=== PATIENT | female | born 1990 ===

== ENCOUNTER 2018-01-01 23:12 | Emergency (ER) | payer OTHER ==
[2018-01-02 00:01] LABS: ABS Basophils 0.1 10^3/ul (0-0.2); ABS Eosinophils 0.1 10^3/ul (0-0.6); ABS Lymphocytes 3.9 10^3/ul (1.0-4.8); ABS Monocytes 0.6 10^3/ul (0-0.8); ABS Neutrophils 7.9 10^3/ul (1.5-7.7); ABS Nucleated RBC 0 10^3/ul; Hematocrit 41 % (35-47); Hemoglobin 13.8 g/dl (12.0-16.0); Lymphocyte % 30.5 % (25-47); Mean Corpuscular HGB Conc 34 g/dl (31-36); Mean Corpuscular Hemoglobin 28 pg (27-31); Mean Corpuscular Volume 84 fL (80-97); Mean Platelet Volume 8.1 um3 (7.4-10.4); Nucleated Red Blood Cells % 0; Platelet Count 270 10^3/ul (150-450); Red Blood Count 4.88 10^6/ul (4.00-5.40); Red Cell Distribution Width 14 % (10.5-15); White Blood Count 12.6 10^3/ul (3.5-10.8)
[2018-01-02 00:17] LABS: EGFR Non-African American 83.6 (>60)
[2018-01-02] MEDS ORDERED: Famotidine TAB* 20 MG PO ONE (00:52)
[2018-01-02] MEDS ORDERED: diPHENhydraMINE IV* 50 MG/ML 1 ml VIAL (BENADRYL) IV ONE (00:52)
[2018-01-02] MEDS ORDERED: NS 0.9% 1000 ML* 1,000 ML IV ONE (00:52)
[2018-01-02] MEDS ORDERED: Ketorolac INJ* 30 MG/ML 1 ML VIAL IV PUSH ONE (00:52)
[2018-01-02] MEDS ORDERED: Metoclopramide IV* 5 MG/ML 2 ML VIAL IV ONE (00:52)
[2018-01-02] MEDS ORDERED: Iohexol 300* (CONTRAST) 10 ML SDV IV ONE (01:02)
[2018-01-02] MEDS ORDERED: oxyCODONE/Acetamin 5/325 MG* TAB PO ONE (02:50)
[2018-01-02] MEDS ORDERED: Sulfamethox/Trimethoprim DS 800/160* TAB PO ONE (02:50)
[2018-01-02] MEDS ORDERED: traMADol TAB* 50 MG PO ONE (02:53)
[2018-01-02 03:14] VITALS: BP 119/84
--- NOTE | 2018-01-02 05:06 | ED ---
Tasneem Phillip Jade, scribed for Kyle Nugent MD on 01/02/18 at 0124 . Headache - HPI Summary HPI Summary: Pt is a 27 y/o female who presents to the ED c/o headache since 20:00. She states the headache began suddenly, is rated 5/10 in severity, is sharp in quality, and is located over the left side of her forehead. Pt states she also has a bump on the back of her neck underneath her skin that feels as if its triggering the headache. Pt tried to sleep, but when she fell down she had cramping stomach pain and vomited 3 times. Pt has N/V/D, but denies any fever. She also states shes had a cough for one month that wont resolve, and had left ear pain. Pt denies recent travel outside the country, but has been on multiple planes recently. She has been stressed recently, because her dad has been in the ICU. PMHx migraines. FHx Hodgkins lymphoma. - History Of Current Complaint Chief Complaint: EDAbdPain Stated Complaint: ABD PAIN Time Seen by Provider: 01/02/18 00:41 Hx Obtained From: Patient Onset/Duration: Sudden Onset, Started hours ago - 20:00, Still Present Currently Pain Is: Moderate - 5/10 Timing: Constant Character: Sharp Location of Headache: Occipital - Left Aggravating Factor: Bright Lights Allevating Factors: Nothing Associated Signs And Symptoms: Nausea, Vomiting - Allergies/Home Medications Allergies/Adverse Reactions: Allergies Allergy/AdvReac Type Severity Reaction Status Date / Time acetaminophen [From Vicodin] Allergy Rash Verified 01/01/18 23:21 clindamycin Allergy Rash Verified 01/01/18 23:21 hydrocodone [From Vicodin] Allergy Rash Verified 01/01/18 23:21 PMH/Surg Hx/FS Hx/Imm Hx Endocrine/Hematology History: Denies: Hx Diabetes Cardiovascular History: Denies: Hx Hypertension History: Denies: Hx Renal Disease Neurological History: Reports: Hx Migraine Infectious Disease History: No Infectious Disease History: Denies: Traveled Outside the [place] in Last 30 Days - Family History Known Family History: Positive: Other - Hodgkin's lymphoma - Social History Alcohol Use: Rare Substance Use Type: Reports: None Smoking Status (MU): Never Smoked Tobacco Review of Systems Negative: Fever Positive: Cough Positive: Abdominal Pain, Vomiting, Diarrhea, Nausea Positive: Headache All Other Systems Reviewed And Are Negative: Yes Physical Exam - Summary Physical Exam Summary: Appearance: Well appearing, no pain distress Skin: warm, dry, reflects adequate perfusion. Acanthosis on posterior neck fold. Head/face: Firm mobile mass on posterior neck just left of midline. Occipital headache. Temporal arteries non-tender. Eyes: EOMI, ROXANA ENT: normal. Throat clear. Neck: supple, non-tender Respiratory: CTA, breath sounds present Cardiovascular: RRR, pulses symmetrical. No LE edema. Abdomen: non-tender, soft Bowel Sounds: present Musculoskeletal: normal, strength/ROM intact Neuro: normal, sensory motor intact, A&Ox3 Triage Information Reviewed: Yes Vital Signs On Initial Exam: Initial Vitals Temp Pulse Resp BP Pulse Ox 96.9 F 103 20 105/71 98 01/01/18 23:19 01/01/18 23:19 01/01/18 23:19 01/01/18 23:19 01/01/18 23:19 Vital Signs Reviewed: Yes Procedures - Incision and Drainage Posterior Neck Site: Posterior neck just left of midline Anesthesia: Lidocaine - 3 cc Instrument(s): Scalpel - 11 blade Packing: Gauze - .25 inch Iodoform. Took culture. Small amount of purulent puss released. Identified with US. Diagnostics - Vital Signs Vital Signs Temp Pulse Resp BP Pulse Ox 01/01/18 23:19 96.9 F 103 20 105/71 98 - Laboratory Lab Results: Lab Results 01/01/18 01/01/18 01/01/18 Range/Units 23:48 23:48 23:48 WBC 12.6 H (3.5-10.8) 10^3/ul RBC 4.88 (4.00-5.40) 10^6/ul Hgb 13.8 (12.0-16.0) g/dl Hct 41 (35-47) % MCV 84 (80-97) fL MCH 28 (27-31) pg MCHC 34 (31-36) g/dl RDW 14 (10.5-15) % Plt Count 270 (150-450) 10^3/ul MPV 8.1 (7.4-10.4) um3 Neut % (Auto) 62.7 (38-83) % Lymph % (Auto) 30.5 (25-47) % Mcdonald % (Auto) 5.1 (0-7) % Eos % (Auto) 1.0 (0-6) % Baso % (Auto) 0.7 (0-2) % Absolute Neuts (auto) 7.9 H (1.5-7.7) 10^3/ul Absolute Lymphs (auto) 3.9 (1.0-4.8) 10^3/ul Absolute Monos (auto) 0.6 (0-0.8) 10^3/ul Absolute Eos (auto) 0.1 (0-0.6) 10^3/ul Absolute Basos (auto) 0.1 (0-0.2) 10^3/ul Absolute Nucleated RBC 0 10^3/ul Nucleated RBC % 0 Sodium 143 (135-145) mmol/L Potassium 3.6 (3.5-5.0) mmol/L Chloride 105 (101-111) mmol/L Carbon Dioxide 25 (22-32) mmol/L Anion Gap 13 H (2-11) mmol/L BUN 13 (6-24) mg/dL Creatinine 0.81 (0.51-0.95) mg/dL Est GFR ( Amer) 101.2 (>60) Est GFR (Non-Af Amer) 83.6 (>60) BUN/Creatinine Ratio 16.0 (8-20) Glucose 181 H (70-100) mg/dL Lactic Acid 3.5 H* (0.5-2.0) mmol/L Calcium 10.4 H (8.6-10.3) mg/dL Total Bilirubin 0.50 (0.2-1.0) mg/dL AST 44 H (13-39) U/L ALT 45 (7-52) U/L Alkaline Phosphatase 81 (34-104) U/L C-Reactive Protein 11.80 H (<8.01) mg/L Total Protein 7.7 (6.4-8.9) g/dL Albumin 4.5 (3.2-5.2) g/dL Globulin 3.2 (2-4) g/dL Albumin/Globulin Ratio 1.4 (1-3) Lipase 32 (11.0-82.0) U/L Beta HCG, Quant < 0.60 mIU/mL Result Diagrams: 01/01/18 23:48 01/01/18 23:48 Lab Statement: Any lab studies that have been ordered have been reviewed, and results considered in the medical decision making process. - CT Brain CT CT Interpretation: No Acute Changes - 01:53 normal brain. No acute intracranial abnormality. No hemorrhage. No visible infarct or mass. Osseous structures are intact. 7.9 mm soft tissue structure in the deep left occipital scalp. Possible lymph node. ED physician reviewed radiology report. CT Interpretation Completed By: Radiologist Neck CT CT Interpretation: Positive (See Comments) - 02:12 Left posterior neck at C4-5 level, there is a 1.3 cm low density collection surrounded by a wall. The collection is just deep to the skin line of a skin fold. This could represent infection/small abscess. Mild surrounding inflammation of the fat/cellulitis. ED physician reviewed radiology report. CT Interpretation Completed By: Radiologist Headache Course/Dx - Course Course Of Treatment: Patient with occipital headache and some diarrhea after getting off a plane. No chest pain or shortness of breath. Hydrated here and treated for headache with improvement. An area in her posterior neck which felt like a lymph node was evaluated with head CT scan. This showed that the area appeared his abscess. She does have a band of acanthosis nigricans in the area and an abscess has developed. And incision and drainage was performed with purulent material out. A culture was obtained. She is started on oral Bactrim. Her headache was improved. She is discharged to follow-up with the [facility] in 1-2 days. - Diagnoses Differential Diagnosis/HQI/PQRI: Other - Tension headache, dehydration, sinusitis, lymphadenopathy, post viral Provider Diagnoses: Abscess, Headache, Diarrhea - Physician Notifications Discussed Care Of Patient With: Jose Orozco M.D. Time Discussed With Above Provider: 02:09 Instructed by Provider To: Other - Dr. Orozco (radiology) thinks the mass is an abscess. Discharge - Sign-Out/Discharge Documenting (check all that apply): Discharge/Admit/Transfer - Discharge - Discharge Plan Condition: Improved Disposition: HOME Prescriptions: Sulfamethox/Trimethoprim DS* [Bactrim DS 800/160 TAB*] 2 tab PO BID #18 tab Patient Education Materials: Abscess (ED) Referrals: [facility] [Outside] [facility] [Outside] Additional Instructions: Call the [facility] in the morning to schedule follow-up before the weekend. Have the packing removed on Saturday. Warm compresses to the area. Ibuprofen as needed. Return if fever, vomiting, worse, new symptoms or other concerns. - Billing Disposition and Condition Condition: IMPROVED Disposition: Home The documentation as recorded by the Tasneem lombardo Jade accurately reflects the service I personally performed and the decisions made by me, Kyle Nugent MD.
--- NOTE | 2018-01-02 08:18 | RAD ---
INDICATION: Left-sided occipital headaches COMPARISON: None TECHNIQUE: Noncontrast axial source images were acquired from the skull base to the vertex. FINDINGS: Ventricles/sulci: The ventricles and cisterns are normal in size and configuration for age. Brain parenchyma: There is no focal parenchymal finding, evidence of intracranial mass, or intracranial mass effect. Intracranial hemorrhage:None. Extra-axial spaces: There are no abnormal extra axial fluid collections or evidence of extra-axial mass. Calvarium: There is no calvarial fracture or other calvarial abnormality. Scalp: There is no evidence of scalp or extracalvarial soft tissue abnormality. Paranasal sinuses/mastoid: The paranasal sinuses and mastoid air cells are clear. Other: There are presumed small lymph nodes in the superficial soft tissues and excretory region. These can be evaluated clinically. IMPRESSION: NO ACUTE INTRACRANIAL FINDINGS (SEE ABOVE).
--- NOTE | 2018-01-02 09:00 | RAD ---
INDICATION: Left posterior neck mass in patient with a history of Hodgkin's lymphoma COMPARISON: None TECHNIQUE: A CT scan of the neck was performed with intravenous contrast following intravenous injection of 50 ml of Omnipaque 300 nonionic contrast. Contiguous axial sections were obtained from the skull base through the lung apices. Images were reconstructed in the coronal and sagittal planes. FINDINGS: Overlying the left of midline posterior neck at the C3/C4 level there is a subcutaneous focus of hypoattenuation with surrounding hyper attenuating rim measuring 1 x 1.1 cm in the axial plane (image 54). The airway is patent. The epiglottis and aryepiglottic folds appear within normal limits. No retropharyngeal soft tissue swelling is noted. No significant enlarged nodes are seen. The parotid and submandibular glands appear to be within normal limits. The thyroid gland appears normal. The lung apices appear clear. The visualized portion of the paranasal sinuses and mastoid air cells appear clear. No significant focal osseous abnormality is seen. IMPRESSION: At the C3/C4 level left of midline posterior neck there is a small subcutaneous focus of mixed attenuation that could represent a subcutaneous abscess.
== END 2018-01-02 03:13 | disposition home or self-care (01) ==
LOC: ED 23:12
DX: L02.11 Cutaneous abscess of neck (principal); R51 Headache; R19.7 Diarrhea, unspecified; Z88.3 Allergy status to other anti-infective agents; Z88.5 Allergy status to narcotic agent
CPT/HCPCS: 10060; 36415; 70450; 70491; 80053; 83605; 83690; 84702; 85025; 86140; 87070; 87205; 87640; 87641; 96361; 96374; 96375; 99284; A9270-GY; J1200; J1885; J2765; Q9967